=== PATIENT | male | born 1980 | race Caucasian/White ===

== ENCOUNTER 2020-12-19 13:00 | Emergency (ER) | payer MEDICAID, SELFPAY ==
[2020-12-19 13:01] VITALS: BP 144/89; PULSE 113; RESP 20; TEMP 36.8; O2SAT 97; BMI 24.3
--- NOTE | 2020-12-19 13:32 | XR_ITS ---
PROCEDURE: XR CHEST PORTABLE CLINICAL HISTORY: short of breath COMPARISON: CR CXR CHEST(2 VIEWS-NOT PORTABLE) from 01/27/2017 CR CXR CHEST(2 VIEWS-NOT PORTABLE) from 02/21/2017 FINDINGS: The cardiomediastinal silhouette and pulmonary vascularity are within normal limits. No lobar consolidation or collapse. There is a vague nodular area in the 1st interspace on the right anteriorly possibly due to summation artifact may be confirmed with follow-up. Developing nodule not excluded. No acute bony abnormalities. IMPRESSION: No acute finding. Possible right upper lobe nodule. Dictated by: Artemio Lund MD 12/19/2020 13:52 Artemio Lund MD in [place] 12/19/2020 13:52
--- NOTE | 2020-12-19 13:34 | HMH.EDGENADL ---
ED Disposition Clinical Impression: Tobacco use disorder Dyspnea Qualifiers: Dyspnea type: unspecified Qualified Code(s): R06.00 - Dyspnea, unspecified Disposition: Home, Self-Care Condition on Discharge: Good Referrals: Mckay Watson [Primary Care Provider] - - Critical Care Critical Care Time: No Attestation: On 12/19/20, the high probability of a clinically significant, sudden or life threatening deterioration of the following system(s) required my full and direct attention, intervention and personal management. The time I documented below is in addition to time spent performing reported procedures but includes the following listed in this critical care notation. Medical Decision Making - Medical Records Medical records reviewed: Yes: I reviewed the patient's medical records. - Christos Inquiry Pt receiving controlled substance: No Vital Signs: 12/19/20 13:01 12/19/20 16:30 Temperature 98.3 F 98.3 F Temperature Source Oral Pulse Rate 71 Pulse Rate [Right] 113 H Respiratory Rate 20 20 Blood Pressure 139/86 Blood Pressure [Right Arm] 144/89 H Blood Pressure Mean [Right Arm] 107 02 Sat by Pulse Oximetry 97 Oxygen Delivery Method Room Air - Lab Data Lab Results 12/19/20 14:20: Urine Opiates Screen Negative, Urine Methadone Screen Negative, Ur Barbituates Screen Negative, Ur Phencyclidine Scrn Negative, Ur Amphetamines Screen Not Reportable, U Benzodiazepines Scrn Negative, Urine Cocaine Screen Negative, U Marijuana (THC) Screen Negative 12/19/20 14:46: WBC 9.1, RBC 4.69, Hgb 15.5, Hct 42.7, MCV 91.0, MCH 33.1 H, MCHC 36.4 H, RDW 13.9, Plt Count 299, MPV 7.7, Neut % (Auto) 61.0, Lymph % (Auto) 27.0, [place] % (Auto) 8.5, Eos % (Auto) 2.7, Baso % (Auto) 0.8, Neut # (Auto) 5.6, Lymph # (Auto) 2.5, [place] # (Auto) 0.8, Eos # (Auto) 0.2, Baso # (Auto) 0.1 12/19/20 14:46: Sodium 137, Potassium 3.7, Chloride 100, Carbon Dioxide 25, Anion Gap 15.7 H, BUN 8 L, Creatinine 0.70, Estimated Creat Clear 144, Estimated GFR 125, Est GFR ( Amer) 151, Glucose 107 H, Calcium 9.0, Total Bilirubin 1.6 H, AST 80 H, ALT 61, Alkaline Phosphatase 111, Troponin I < 0.01, C-Reactive Protein 41.5 H, Total Protein 8.1, Albumin 4.3, Globulin 3.8 H, Albumin/Globulin Ratio 1.1 12/19/20 14:46: D-Dimer 0.33 12/19/20 14:46: ESR 47 H 12/19/20 14:46: NT-Pro-B Natriuret Pep < 11.1 Result diagrams: 12/19/20 14:46 12/19/20 14:46 Orders (Tests/Meds): ED MEDICATIONS Discontinued Medications Generic Name Dose Route Start Last Admin Trade Name Freq PRN Reason Stop Dose Admin Aspirin 325 mg 12/19/20 13:33 12/19/20 14:01 Aspirin 325mg Tablet PO 12/19/20 13:34 325 mg ONCE ONE Administration Sodium Chloride 1,000 mls @ 999 mls/hr 12/19/20 13:45 12/19/20 14:01 Sod Chlor 0.9% 1000ml Bag IV 12/19/20 14:45 999 mls/hr .Q1H1M ANNE MARIE Administration ORDERS Category Date Time Status HIV-1 Quant. RNA PCR Routine Lab 12/19/20 13:36 Received Hepatitis C Antibody Stat Lab 12/19/20 14:46 Received Rapid PCR Covid and Flu A/B Stat Lab 12/19/20 13:31 Ordered - IRENE Score for Non-Stemi Age of Patient: 40-49 years old Heart Rate: 70-89 bpm Systolic Blood Pressure: 140-159 mmHg Serum Creatinine: 0.40-0.79 mg/dl CHF [place] Class: I-No CHF Other Risk Factors: None Non-Stemi Risk Score: 62 Medical Decision Narrative: In summary this is a 40-year-old male presenting to the emergency department with chest pain and shortness of breath. Patient clinically stable on arrival, though he is tachycardic. Appears somewhat agitated. Differential diagnoses are broad including ACS, myocarditis, pulmonary embolism, intoxication, anxiety. Will obtain CBC, CMP, chest x-ray, EKG, troponin profile, D-dimer, BMP, ESR, CRP, drug screen. EKG shows sinus tachycardia at [address] segment elevation. No arrhythmia. Troponin undetectable. Doubt ACS. Other laboratory results are reassuring. No leukocytosis. No abnormal
[2020-12-19 15:09] LABS: Barbiturates Screen,Urine Negative ng/ml (<200)
[2020-12-19 15:10] LABS: Basophils # 0.1 K/mm3 (0-0.2); Basophils % 0.8 % (0.1-2.0); Chloride 100 mmol/L (98-107); Eosinophils # 0.2 K/mm3 (0.0-0.4); Eosinophils % 2.7 % (0.1-12.0); Hematocrit 42.7 % (42.0-52.0); Hemoglobin 15.5 g/dL (14.1-18.0); Lymphocytes # 2.5 K/mm3 (0.7-4.5); Mean Corpuscular HGB Conc 36.4 g/dL (31.8-35.4); Mean Corpuscular Hemoglobin 33.1 pg (27.0-31.2); Mean Platelet Volume 7.7 fl (7.4-10.4); Monocytes # 0.8 K/mm3 (0.1-1.0); Monocytes % 8.5 % (1.7-9.3); Neutrophils # 5.6 K/mm3 (1.8-7.8); Platelet Count 299 K/mm3 (142-424); Red Blood Count 4.69 M/mm3 (4.60-6.20); Red Cell Distribution Width 13.9 % (11.5-17.5); White Blood Count 9.1 K/mm3 (4.8-10.8)
[2020-12-19 15:10] LABS: Benzodiazepines Screen,Urine Negative ng/ml (<200)
[2020-12-19 15:11] LABS: Methadone Screen,Urine Negative ng/ml (<300)
[2020-12-19 15:11] LABS: Potassium 3.7 mmoL/L (3.5-5.1); Sodium 137 mmol/L (136-145)
[2020-12-19 15:12] LABS: Cannabinoid Screen,Urine Negative ng/ml (<50); Cocaine Screen,Urine Negative ng/ml (<300)
[2020-12-19 15:13] LABS: Alanine Aminotransferase 61 U/L (12-78); Aspartate Amino Transferase 80 U/L (17-59); Blood Urea Nitrogen 8 mg/dl (9-20); Creatinine Clearance Estimated 144 mL/min (50-200); Estimated Glomerular Filt Rate 125 ml/min (>60); GFR (African American) 151 ML/MIN (>60)
[2020-12-19 15:13] LABS: Opiate Screen,Urine Negative ng/ml (<300); Phencyclidine Screen,Urine Negative ng/ml (<25)
[2020-12-19 15:14] LABS: Albumin Level 4.3 g/dl (3.5-5.0); Albumin/Globulin Ratio 1.1 (1.1-1.8); Alkaline Phosphatase 111 U/L (38-126); Anion Gap 15.7 mEq/L (5-15); Bilirubin,Total 1.6 mg/dl (0.2-1.3); Carbon Dioxide 25 mmol/L (22.0-30.0); Globulin 3.8 g/dL (1.3-3.2); Glucose 107 mg/dl (74-100); Total Protein,Serum 8.1 g/dl (6.3-8.2)
[2020-12-19 15:22] LABS: C-Reactive Protein 41.5 mg/L (0-4)
[2020-12-19 15:24] LABS: D-Dimer 0.33 ug/mL (0.0-0.5)
[2020-12-19 15:33] LABS: NT Pro Brain Natriuretic Pep. < 11.1 pg/mL (0-125)
[2020-12-19 15:35] LABS: Troponin I < 0.01 ng/ml (0.00-0.034)
[2020-12-19 15:45] LABS: Erythrocyte Sedimentation Rate 47 mm/hr (0-15)
[2020-12-19 16:30] VITALS: BP 139/86; PULSE 71; RESP 20; TEMP 36.8; O2SAT 100
[2020-12-21 08:30] LABS: Hepatitis C Antibody >11.0 s/co ratio (0.0-0.9)
[2020-12-22 12:06] LABS: HIV 1 RNA, Real time PCR <20 copies/mL (.)
== END 2020-12-19 16:35 | disposition home or self-care (01) ==
PROVIDERS: Emergency Provider Emergency Medicine; PCP Internal Medicine
DX: R06.00 Dyspnea, unspecified (principal); R07.9 Chest pain, unspecified; F17.290 Nicotine dependence, other tobacco product, uncomplicated
CPT/HCPCS: 71045; 80053; 80305; 83880; 84484; 85025; 85378; 85651; 86140; 87380; 87536; 96365; 99282

== ENCOUNTER 2021-01-20 15:25 | Emergency (ER) | payer MEDICAID, SELFPAY ==
[2021-01-20 15:27] VITALS: BP 132/85; PULSE 113; RESP 18; TEMP 36.8; O2SAT 96; BMI 24.2
--- NOTE | 2021-01-20 15:56 | CT_ITS ---
PROCEDURE INFORMATION: Exam: CT Abdomen And Pelvis Without Contrast Exam date and time: 01/20/2021 3:56 PM Age: 40 years old Clinical indication: Abdominal pain; Flank; Right; Prior surgery; Surgery type: Gallbladder; Additional info: Llq and RT flank pain, burn with urination TECHNIQUE: Imaging protocol: Computed tomography of the abdomen and pelvis without contrast. Radiation optimization: All CT scans at this facility use at least one of these dose optimization techniques: automated exposure control; mA and/or kV adjustment per patient size (includes targeted exams where dose is matched to clinical indication); or iterative reconstruction. COMPARISON: ABDPELWW CT abdomen pelvis wo/w con 04/18/2018 1:08 PM FINDINGS: Liver: Normal. No mass. Gallbladder and bile ducts: Status post cholecystectomy. Pancreas: Normal. No ductal dilation. Spleen: Normal. No splenomegaly. Adrenal glands: Normal. No mass. Kidneys and ureters: No stones. No hydronephrosis. Stomach and bowel: Unremarkable. No obstruction. No mucosal thickening. Appendix: No evidence of appendicitis. Intraperitoneal space: Unremarkable. No free air. No significant fluid collection. Vasculature: Unremarkable. No abdominal aortic aneurysm. Lymph nodes: Unremarkable. No enlarged lymph nodes. Urinary bladder: Unremarkable as visualized. Reproductive: Unremarkable as visualized. Bones/joints: Unremarkable. No acute fracture. Soft tissues: Unremarkable. Lungs: Calcified nodule in the left base. IMPRESSION: No acute pathology
[2021-01-20 16:01] LABS: Basophils # 0.1 K/mm3 (0-0.2); Basophils % 1.5 % (0.1-2.0); Eosinophils # 0.2 K/mm3 (0.0-0.4); Hematocrit 49.5 % (42.0-52.0); Hemoglobin 17.2 g/dL (14.1-18.0); Lymphocytes % 32.6 % (10-50); Mean Corpuscular HGB Conc 34.7 g/dL (31.8-35.4); Mean Corpuscular Hemoglobin 32.7 pg (27.0-31.2); Mean Corpuscular Volume 94.2 fl (80-94); Monocytes # 0.5 K/mm3 (0.1-1.0); Monocytes % 5.7 % (1.7-9.3); Neutrophils # 5.4 K/mm3 (1.8-7.8); Neutrophils % 58.2 % (37.0-80.0); Platelet Count 343 K/mm3 (142-424); Red Blood Count 5.25 M/mm3 (4.60-6.20); Red Cell Distribution Width 13.5 % (11.5-17.5); White Blood Count 9.3 K/mm3 (4.8-10.8)
[2021-01-20 16:12] LABS: Alanine Aminotransferase 56 U/L (12-78); Albumin Level 4.8 g/dl (3.5-5.0); Albumin/Globulin Ratio 1.1 (1.1-1.8); Alkaline Phosphatase 83 U/L (38-126); Amylase 66 U/L (30-110); Anion Gap 21.1 mEq/L (5-15); Aspartate Amino Transferase 65 U/L (17-59); Bilirubin,Total 1.5 mg/dl (0.2-1.3); Blood Urea Nitrogen 10 mg/dl (9-20); Calcium 9.4 mg/dl (8.4-10.2); Carbon Dioxide 24 mmol/L (22.0-30.0); Chloride 97 mmol/L (98-107); Creatinine Clearance Estimated 157 mL/min (50-200); Estimated Glomerular Filt Rate 149 ml/min (>60); GFR (African American) 181 ML/MIN (>60); Globulin 4.5 g/dL (1.3-3.2); Glucose 96 mg/dl (74-100); Lipase 55 U/L (23-300); Potassium 4.1 mmoL/L (3.5-5.1); Sodium 138 mmol/L (136-145); Total Protein,Serum 9.3 g/dl (6.3-8.2)
[2021-01-20 17:00] VITALS: BP 122/80; PULSE 103; RESP 17; O2SAT 99
--- NOTE | 2021-01-20 17:26 | HMH.EDGENADL ---
ED Disposition Clinical Impression: Right flank pain, Left sided abdominal pain, Urethritis, Blurry vision Disposition: Home, Self-Care Condition on Discharge: Good Instructions: DI for Acute Abdominal Pain Additional Instructions: Take doxycycline as prescribed. Vccw-fea-gurneet ibuprofen for pain. Follow-up with primary care provider next week for STD test results and further care. Follow-up with eye doctor for blurry vision: Dr. Juan Shepherd [facility] [address] [place] [address] Prescriptions: Doxycycline Monohydrate [Monodox] 100 mg PO BID #14 cap Transmission Status: Received by [facility] Referrals: Mckay Watson [Primary Care Provider] - - Critical Care Critical Care Time: No Attestation: On 01/20/21, the high probability of a clinically significant, sudden or life threatening deterioration of the following system(s) required my full and direct attention, intervention and personal management. The time I documented below is in addition to time spent performing reported procedures but includes the following listed in this critical care notation. Medical Decision Making - Christos Inquiry Pt receiving controlled substance: No Vital Signs: 01/20/21 15:27 01/20/21 17:00 01/20/21 17:30 Temperature 98.2 F Temperature Source Oral Pulse Rate 103 H 114 H Pulse Rate [Right Radial] 113 H Respiratory Rate 18 17 17 Blood Pressure 122/80 114/80 Blood Pressure [Right Arm] 132/85 Blood Pressure Mean 94 84 Blood Pressure Mean [Right Arm] 100 Blood Pressure Source [Right Arm] Automatic Cuff Blood Pressure Position [Right Arm] Sitting 02 Sat by Pulse Oximetry 96 99 100 Oxygen Delivery Method Room Air - Lab Data Lab Results 01/20/21 15:54: WBC 9.3, RBC 5.25, Hgb 17.2, Hct 49.5, MCV 94.2 H, MCH 32.7 H, MCHC 34.7, RDW 13.5, Plt Count 343, MPV 8.0, Neut % (Auto) 58.2, Lymph % (Auto) 32.6, [place] % (Auto) 5.7, Eos % (Auto) 2.0, Baso % (Auto) 1.5, Neut # (Auto) 5.4, Lymph # (Auto) 3.0, [place] # (Auto) 0.5, Eos # (Auto) 0.2, Baso # (Auto) 0.1 01/20/21 15:54: Sodium 138, Potassium 4.1, Chloride 97 L, Carbon Dioxide 24, Anion Gap 21.1 H, BUN 10, Creatinine 0.60 L, Estimated Creat Clear 157, Estimated GFR 149, Est GFR ( Amer) 181, Glucose 96, Calcium 9.4, Total Bilirubin 1.5 H, AST 65 H, ALT 56, Alkaline Phosphatase 83, Total Protein 9.3 H, Albumin 4.8, Globulin 4.5 H, Albumin/Globulin Ratio 1.1, Amylase 66, Lipase 55 Result diagrams: 01/20/21 15:54 01/20/21 15:54 Orders (Tests/Meds): ED MEDICATIONS Discontinued Medications Generic Name Dose Route Start Last Admin Trade Name Freq PRN Reason Stop Dose Admin Ceftriaxone Sodium 1 gm/ 50 mls @ 100 mls/hr 01/20/21 17:31 01/20/21 18:19 Sodium Chloride IV 01/20/21 18:00 100 mls/hr ONCE ONE Administration Sodium Chloride 1,000 mls @ 999 mls/hr 01/20/21 17:58 01/20/21 18:19 Sod Chlor 0.9% 1000ml Bag IV 01/20/21 18:58 999 mls/hr .Q1H1M ONE Administration Ketorolac Tromethamine 30 mg 01/20/21 17:33 01/20/21 18:19 Ketorolac 30mg/Ml Vial IV 01/20/21 17:34 30 mg ONCE ONE Administration ORDERS Category Date Time Status Urinalysis and Microscopic Stat Lab 01/20/21 15:55 Ordered - CT Data CT Scan: Abdomen, Pelvis Time Received: 17:[address] Reviewed: Yes: I have viewed the radiologist's interpretation Findings Narrative: PROCEDURE INFORMATION: Exam: CT Abdomen And Pelvis Without Contrast Exam date and time: 01/20/2021 3:56 PM Age: 40 years old Clinical indication: Abdominal pain; Flank; Right; Prior surgery; Surgery type: Gallbladder; Additional info: Llq and RT flank pain, burn with urination TECHNIQUE: Imaging protocol: Computed tomography of the abdomen and pelvis without contrast. Radiation optimization: All CT scans at this facility use at least one of these dose optimization techniques: automated exposure control; mA and/or
[2021-01-20 17:30] VITALS: BP 114/80; PULSE 114; RESP 17; O2SAT 100
[2021-01-20 19:05] VITALS: BP 123/76; PULSE 74; RESP 18; TEMP 36.8; O2SAT 98
== END 2021-01-20 19:06 | disposition home or self-care (01) ==
PROVIDERS: Emergency Provider Emergency Medicine; PCP Internal Medicine
DX: N34.2 Other urethritis (principal); F17.290 Nicotine dependence, other tobacco product, uncomplicated; H53.8 Other visual disturbances
CPT/HCPCS: 74176; 80053; 82150; 83690; 85025; 96365; 96375; 99282

== ENCOUNTER 2021-07-13 02:13 | Emergency (ER) | payer MEDICAID, SELFPAY ==
[2021-07-13 02:18] VITALS: BP 145/91; PULSE 96; RESP 18; TEMP 36.7; O2SAT 96; BMI 25.0
--- NOTE | 2021-07-13 02:34 | HMH.EDMCLR ---
ED Disposition Clinical Impression: Medical clearance for incarceration Disposition: Home, Self-Care Condition on Discharge: Good Referrals: Mckay Watson [Primary Care Provider] - - Critical Care Critical Care Time: No Attestation: On 07/13/21, the high probability of a clinically significant, sudden or life threatening deterioration of the following system(s) required my full and direct attention, intervention and personal management. The time I documented below is in addition to time spent performing reported procedures but includes the following listed in this critical care notation. Medical Decision Making - Medical Records Medical records reviewed: Yes: I reviewed the patient's medical records. - Christos Inquiry Pt receiving controlled substance: No Vital Signs: 07/13/21 02:18 Temperature 98.1 F Temperature Source Oral Pulse Rate [Apical] 96 H Respiratory Rate 18 Blood Pressure [Right Arm] 145/91 H Blood Pressure Mean [Right Arm] 109 Blood Pressure Source [Right Arm] Automatic Cuff Blood Pressure Position [Right Arm] Sitting 02 Sat by Pulse Oximetry 96 Oxygen Delivery Method Room Air Medical Clearance HPI - General Chief complaint: Medical Clearance Stated complaint: Medical Clearance Time Seen by Provider: 07/13/21 02:34 Mode of Arrival: Ambulatory Source of Information: Patient, Medical Record Limitations: No Limitations Description of Symptoms (Recalled from ER Triage Doc. by RN): Patient is a medical clearance for incarceration. Patient has no medical complaints. - History of Present Illness HPI Narrative: no specific issues MD complaint: medical clearance requested Place: home Traumatic Symptoms: denies traumatic injury Associated Symptoms: denies other symptoms Treatments Prior to Arrival: none Home medications: Previous Rx's Medication Instructions Recorded Doxycycline Monohydrate [Monodox] 100 mg PO BID #14 cap 01/20/21 Allergies/Adverse reactions: Allergies Allergy/AdvReac Type Severity Reaction Status Date / Time No Known Allergies Allergy Verified 06/13/19 14:01 [facility] History - Hepatitis A Screen Drug use history?: Yes High risk sexual behaviors?: No History of sexually transmitted infection?: No Currently employed?: No Childcare worker?: No Do you have indoor plumbing?: Yes Do you have electricity?: Yes Attestation statement:: This patient has been screened for Hepatitis A risk factors. I have reviewed the patient's past medical history: Yes Medical History: Denies:: Cancer, Diabetes Mellitus Type 1, Diabetes Mellitus Type 2, MRSA Amputation: No - Social History Smoking Status: Unknown if ever smoked Tobacco Type: smokeless tobacco # Packs/Day (cigarettes): 1 Alcohol Intake: current Alcohol Intake Frequency:: a few times a month Substance Use Type: IV drugs, methamphetamine Occupational Status: unemployed Housing: apartment ROS Obtained: Yes All systems reviewed & no additional complaints Physical Exam - General General appearance: alert - Head Head exam: normocephalic - Eye Eye exam: Present: PERRL - ENT ENT exam: Present: mucous membranes moist - Neck Neck exam: Present: trachea midline - Respiratory Respiratory exam: Absent: respiratory distress - Cardiovascular Cardiovascular exam: Present: regular rate - Abdominal Exam Abdominal exam: Present: soft - Extremities Exam Extremities exam: Present: full ROM - Neurological Exam Neurological exam: Present: alert, CN II-XII intact - Psychiatric Psychiatric exam: Present: normal affect - Skin Skin exam: Absent: rash
[2021-07-13 02:42] VITALS: BP 145/90; PULSE 95; RESP 18; TEMP 36.7; O2SAT 99
== END 2021-07-13 02:44 | disposition home or self-care (01) ==
PROVIDERS: Emergency Provider Emergency Medicine; PCP Internal Medicine
DX: F17.290 Nicotine dependence, other tobacco product, uncomplicated
CPT/HCPCS: 99282

== ENCOUNTER 2023-10-20 13:49 | Emergency (ER) | payer OTHER, MEDICAID, SELFPAY ==
[2023-10-20 14:00] VITALS: BP 138/92; PULSE 113; RESP 18; TEMP 36.7; O2SAT 100; BMI 24.2
--- NOTE | 2023-10-20 14:03 | ED_ITS ---
Discharge Plan Disposition Patient Disposition: Home, Self-Care Condition: Good Prescriptions Prescriptions: New clindamycin HCl 150 mg capsule 150 mg PO BID 10 Days Qty: 20 0RF sulfamethoxazole-trimethoprim [Bactrim DS] 800-160 mg tablet 1 tab PO Q8H 10 Days Qty: 30 0RF No Action doxycycline monohydrate 100 MG capsule 100 mg PO BID Qty: 14 0RF cyclobenzaprine 10 mg tablet 10 mg PO TID PRN (Reason: muscle spasm) 5 Days Qty: 15 0RF lidocaine 4 % adhesive patch,medicated 1 patch topical DAILY Qty: 5 0RF Rx Instructions: may leave on for up to 12 hrs ibuprofen 600 mg tablet 600 mg PO Q8H PRN (Reason: pain) 7 Days Qty: 21 0RF Referrals Follow up/Referrals: Dontrell Rausch MD [Staff Physician] - See instructions Provider,MD Emmanuel [Primary Care Provider] - See instructions Clinical Impressions Clinical Impression: Scrotal wall abscess Instructions Patient Instructions: DI for Scrotal Abscess Discharge ED Provider: Ivana Barboza General Adult HPI <THANG Guzman - Last Filed: 10/27/23 15:51> General Chief complaint: Urogenital-Male Stated complaint: lower pain sore on private area Time Seen by Provider: 10/20/23 14:02 History of Present Illness HPI narrative: Patient presents for a very painful area on his scrotum. Patient noticed a red place on his left scrotal wall that he thought was a pimple. He tried to pop it himself however he does continue to get red hot and occasionally draining purulent material. He reports no difficulty with urination. He denies fever chills hemoptysis hematochezia melena vomiting or diarrhea but does report the pain makes him nauseated. Related Data Previous Rx's Medication Instructions Recorded doxycycline monohydrate 100 mg 100 mg PO BID #14 caps 01/20/21 capsule clindamycin HCl 150 mg capsule 150 mg PO BID 10 days #20 caps 10/20/23 sulfamethoxazole 800 1 tab PO Q8H 10 days #30 tabs 10/20/23 mg-trimethoprim 160 mg tablet (Bactrim DS) cyclobenzaprine 10 mg tablet 10 mg PO TID PRN muscle spasm 5 10/22/23 days #15 tabs ibuprofen 600 mg tablet 600 mg PO Q8H PRN pain 7 days #21 10/22/23 tabs lidocaine 4 % topical patch 1 patch topical DAILY #5 ea 10/22/23 Allergies Allergy/AdvReac Type Severity Reaction Status Date / Time No Known Allergies Allergy Verified 06/13/19 14:01 PFSH <THANG Guzman - Last Filed: 10/27/23 15:51> [facility] Disclaimer: The information contained in this section may have been updated after the patient was seen, as this information can be updated by other users. 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 current occupational status: unemployed Travel in the last 8 weeks: None housing: apartment <THANG Guzman - Last Filed: 10/27/23 15:51> ROS Obtained: Yes Systems reviewed as appropriate & no additional complaints except as documented Physical Exam <THANG Guzman - Last Filed: 10/27/23 15:51> General General appearance: alert and in no apparent distress Respiratory Respiratory exam: Present normal lung sounds bilaterally Cardiovascular Cardiovascular exam: Present normal rhythm and bradycardia Expanded Exam Male Image: 2 1. Scrotal wall abscess and cellulitis Neurological Exam Neurological exam: Present alert and oriented X3 Lymphatic Lymphatic Findings: L inguinal node tender (Patient has inguinal lymphadenitis on the left) Medical Decision Making <THANG Guzman - Last Filed: 10/27/23 15:51> Medical Records Medical records reviewed: Yes I reviewed the patient's medical records. Christos Inquiry Pt receiving controlled substance: No Vital Signs: 10/20/23 14:00 10/20/23 14:55 10/20/23 15:20 Temperature 98.1 F 98.1 F Temperature Source Oral Oral Pulse Rate 109 H 92 H Pulse Rate [Right Brachial] 113 H Respiratory Rate 18 17 Blood Pressure 134/75 137/87 Blood Pressure [Right Arm] 138/92 H Blood Pressure Mean [Right Arm] 107 02 Sat by Pulse Oximetry 100 100 Oxygen Delivery Method Room Air Room Air Lab Data Lab results reviewed: Yes I reviewed the patient's lab results. Orders (Tests/Meds): ED MEDICATIONS Discontinued Medications Generic Name Dose Route Start Last Admin Trade Name Freq PRN Reason Stop Dose Admin Acetaminophen 1,000 mg 10/20/23 14:36 10/20/23 14:42 Acetaminophen 500mg Tab PO 10/20/23 14:37 1,000 mg ONCE ONE Administration Clindamycin HCl 150 mg 10/20/23 14:16 10/20/23 14:42 Clindamycin 150mg Capsule PO 10/20/23 14:17 150 mg ONCE ONE Administration Ibuprofen 800 mg 10/20/23 14:36 10/20/23 14:42 Ibuprofen 400 Mg Tablet PO 10/20/23 14:37 800 mg ONCE ONE Administration Lidocaine HCl 10 ml 10/20/23 14:16 10/20/23 14:43 Lidocaine 1% 10ml Mdv SQ 10/20/23 14:17 10 ml ONCE ONE Administration Oxycodone HCl 5 mg 10/20/23 14:36 10/20/23 14:42 Oxycodone 5mg Immediate Release Tablet PO 10/20/23 14:37 5 mg ONCE ONE Administration Trimethoprim/Sulfamethoxazole 1 each 10/20/23 14:16 10/20/23 14:42 Sulfa/Trimethoprim 1 Tablet PO 10/20/23 14:17 1 each ONCE ONE Administration ORDERS Category Date Time Status Wound Culture and Gram Stain Routine Micro 10/20/23 15:00 Completed Medical Decision Narrative: In summary patient is a 43-year-old male who presents to the emergency department for evaluation of scrotal wall abscess and cellulitis. Patient is normotensive tachycardic upon arrival, but afebrile. Physical exam is remarkable for left dependent wall induration erythema and obvious necrotic area but no discrete fluctuance noted. It does not involve the testicles. It is limited to the scrotal wall. There is no erythema edema or induration tracking towards the perineum. He does have left inguinal node lymphadenitis. Differential diagnosis includes scrotal wall abscess versus involvement of the anterior of the scrotum as well. Initial workup will be conducted with incision and drainage. Initial interventions include Tylenol Motrin oxycodone. Incision and drainage confirms that it is limited to the scrotal wall and not involving the actual anterior scrotal sac. Wound edges packed open. Addendum on 10/27/2023 notified by [employer]) that the principal was incorrect and it was the [facility] provider instead of Dr. Harris. I have made the correction on this date and no other chart edits. <Azam Harris MD - Last Filed: 10/29/23 15:12> Vital Signs: 10/20/23 14:00 10/20/23 14:55 10/20/23 15:20 Temperature 98.1 F 98.1 F Temperature Source Oral Oral Pulse Rate 109 H 92 H Pulse Rate [Right Brachial] 113 H Respiratory Rate 18 17 Blood Pressure 134/75 137/87 Blood Pressure [Right Arm] 138/92 H Blood Pressure Mean [Right Arm] 107 02 Sat by Pulse Oximetry 100 100 Oxygen Delivery Method Room Air Room Air Orders (Tests/Meds): ED MEDICATIONS Discontinued Medications Generic Name Dose Route Start Last Admin Trade Name Freq PRN Reason Stop Dose Admin Acetaminophen 1,000 mg 10/20/23 14:36 10/20/23 14:42 Acetaminophen 500mg Tab PO 10/20/23 14:37 1,000 mg ONCE ONE Administration Clindamycin HCl 150 mg 10/20/23 14:16 10/20/23 14:42 Clindamycin 150mg Capsule PO 10/20/23 14:17 150 mg ONCE ONE Administration Ibuprofen 800 mg 10/20/23 14:36 10/20/23 14:42 Ibuprofen 400 Mg Tablet PO 10/20/23 14:37 800 mg ONCE ONE Administration Lidocaine HCl 10 ml 10/20/23 14:16 10/20/23 14:43 Lidocaine 1% 10ml Mdv SQ 10/20/23 14:17 10 ml ONCE ONE Administration Oxycodone HCl 5 mg 10/20/23 14:36 10/20/23 14:42 Oxycodone 5mg Immediate Release Tablet PO 10/20/23 14:37 5 mg ONCE ONE Administration Trimethoprim/Sulfamethoxazole 1 each 10/20/23 14:16 10/20/23 14:42 Sulfa/Trimethoprim 1 Tablet PO 10/20/23 14:17 1 each ONCE ONE Administration ORDERS Category Date Time Status Wound Culture and Gram Stain Routine Micro 10/20/23 15:00 Completed Medical Decision Narrative: In summary patient is a 43-year-old male who presents to the emergency department for evaluation of scrotal wall abscess and cellulitis. Patient is normotensive tachycardic upon arrival, but afebrile. Physical exam is remarkable for left dependent wall induration erythema and obvious necrotic area but no discrete fluctuance noted. It does not involve the testicles. It is limited to the scrotal wall. There is no erythema edema or induration tracking towards the perineum. He does have left inguinal node lymphadenitis. Differential diagnosis includes scrotal wall abscess versus involvement of the anterior of the scrotum as well. Initial workup will be conducted with incision and drainage. Initial interventions include Tylenol Motrin oxycodone. Incision and drainage confirms that it is limited to the scrotal wall and not involving the actual anterior scrotal sac. Wound edges packed open. Addendum on 10/27/2023 notified by [employer]) that the principal was incorrect and it was the [facility] provider instead of Dr. Harris. I have made the correction on this date and no other chart edits. I was consulted by the VERÓNICA, and we discussed the complexity of the problems being addressed. I approved the treatment and management plan for this patient?s care in the Emergency Department, thus performing a substantive portion of the medical decision making. Azam Harris MD Procedures <THANG Guzman - Last Filed: 10/27/23 15:51> Abscess I/D Site: other (Left dependent scrotal wall) Side (if applicable): left Local Anesthetic: lidocaine 1% Amount of anesthesia used (mL): 10 Technique: incised with #11 blade Amount of fluid expressed (mL): 3 Irrigation: Yes Packing used?: iodoform Critical Care <THANG Guzman - Last Filed: 10/27/23 15:51> Critical Care Time Critical Care Time: No
[2023-10-20] MEDS: ACETAMINOPHEN 500MG TAB 1000 MG PO (14:42)
[2023-10-20] MEDS: OXYCODONE 5MG IMMEDIATE RELEASE TABLET 5 MG PO (14:42)
[2023-10-20] MEDS: SULFA/TRIMETHOPRIM 1 TABLET 1 EACH PO (14:42)
[2023-10-20] MEDS: IBUPROFEN 400 MG TABLET 800 MG PO (14:42)
[2023-10-20] MEDS: CLINDAMYCIN 150MG CAPSULE 150 MG PO (14:42)
[2023-10-20] MEDS: LIDOCAINE 1% 10ML MDV 10 ML SQ (14:43)
[2023-10-20 14:55] VITALS: BP 134/75; PULSE 109; O2SAT 100
[2023-10-20 15:20] VITALS: BP 137/87; PULSE 92; RESP 17; TEMP 36.7; O2SAT 99
--- NOTE | 2023-10-22 08:47 | PC.NURSE ---
WOUND CULTURE DISCUSSED WITH DR CURRIE, NO NEW ORDERS
== END 2023-10-20 15:21 | disposition home or self-care (01) ==
PROVIDERS: Emergency Provider Nurse Practitioner Family
DX: N49.2 Inflammatory disorders of scrotum (principal); B95.62 Methicillin resistant Staphylococcus aureus infection as the cause of diseases classified elsewhere; L04.1 Acute lymphadenitis of trunk
CPT/HCPCS: 55100; 87070; 87077; 87186; 87205; 99283

== ENCOUNTER 2023-10-22 10:16 | Emergency (ER) | payer OTHER, SELFPAY ==
[2023-10-22 10:17] VITALS: BP 137/95; PULSE 105; RESP 21; TEMP 36.7; O2SAT 96; BMI 23.5
[2023-10-22 10:21] VITALS: BP 137/95; PULSE 99; O2SAT 98
[2023-10-22 10:30] VITALS: BP 143/86; PULSE 95; O2SAT 97
--- NOTE | 2023-10-22 10:35 | PC.NURSE ---
DR CURRIE AT BEDSIDE
[2023-10-22] MEDS: KETOROLAC 60MG/2ML VIAL 60 MG IM (10:44)
--- NOTE | 2023-10-22 10:44 | ED_ITS ---
Discharge Plan Disposition Patient Disposition: Home, Self-Care Prescriptions Prescriptions: New cyclobenzaprine 10 mg tablet 10 mg PO TID PRN (Reason: muscle spasm) 5 Days Qty: 15 0RF lidocaine 4 % adhesive patch,medicated 1 patch topical DAILY Qty: 5 0RF Rx Instructions: may leave on for up to 12 hrs ibuprofen 600 mg tablet 600 mg PO Q8H PRN (Reason: pain) 7 Days Qty: 21 0RF No Action doxycycline monohydrate 100 MG capsule 100 mg PO BID Qty: 14 0RF clindamycin HCl 150 mg capsule 150 mg PO BID 10 Days Qty: 20 0RF sulfamethoxazole-trimethoprim [Bactrim DS] 800-160 mg tablet 1 tab PO Q8H 10 Days Qty: 30 0RF Referrals Follow up/Referrals: Mckay Watson MD [Primary Care Provider] - See instructions Activity Restrictions/Add. Instructions Additional Instructions/Restrictions: Please return with any worsening symptoms blood in your urine high fevers or other concerns. Clinical Impressions Clinical Impression: Lumbosacral strain Discharge ED Provider: Margi Akins General Adult HPI General Chief complaint: PAIN Stated complaint: pain in left side Time Seen by Provider: 10/22/23 10:35 Mode of Arrival: Family Vehicle Source of Information: Patient Limitations: No Limitations Description of Symptoms (Recalled from ER Triage Doc. by RN): Pt c/o sudden onset of pain to his left low back. States he was working with [employer] and then immediatly felt the pain to his back. States the pain radiates to his left flank and LLQ ABD. Tenderness to left lower back. Denies any hx of kidney stone of back trouble. Denies any gross hematuria or difficulty voiding. Denies any fever, chills, or n/v/d. History of Present Illness HPI narrative: Patient is a 43-year-old male present today with left paraspinal lumbosacral pain. This happened suddenly while he was working with [employer] work. States he is having significant worsening with any type of movement or touch. Does associate some tightness in the left lateral side of his abdomen but no significant abdominal pain associate with this. Denies any hematuria no history of kidney stones no fevers or chills. Also denies any lower extremity paralysis any saddle anesthesia bowel or bladder incontinence history of fever etc. Of note he was recently in the ER for a scrotal abscess which he states is significantly improved since recent I&D. Denies any associated symptoms with that. Related Data Previous Rx's Medication Instructions Recorded doxycycline monohydrate 100 mg 100 mg PO BID #14 caps 01/20/21 capsule clindamycin HCl 150 mg capsule 150 mg PO BID 10 days #20 caps 10/20/23 sulfamethoxazole 800 1 tab PO Q8H 10 days #30 tabs 10/20/23 mg-trimethoprim 160 mg tablet (Bactrim DS) cyclobenzaprine 10 mg tablet 10 mg PO TID PRN muscle spasm 5 10/22/23 days #15 tabs ibuprofen 600 mg tablet 600 mg PO Q8H PRN pain 7 days #21 10/22/23 tabs lidocaine 4 % topical patch 1 patch topical DAILY #5 ea 10/22/23 Allergies Allergy/AdvReac Type Severity Reaction Status Date / Time No Known Allergies Allergy Verified 06/13/19 14:01 [facility] Disclaimer: The information contained in this section may have been updated after the patient was seen, as this information can be updated by other users. 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 current occupational status: unemployed Travel in the last 8 weeks: None housing: apartment ROS Obtained: Yes All systems reviewed & no additional complaints except as documented Physical Exam General General appearance: alert and in no apparent distress Respiratory Respiratory exam: Present normal lung sounds bilaterally Cardiovascular Cardiovascular exam: Present regular rate and normal rhythm Abdominal Exam Abdominal exam: Present soft; Absent distention or tenderness Back Exam Back exam: Present tenderness (No midline spinal tenderness no radiation normal neurovascular exam distally) Back 1 view image: 2 1. ttp Neurological Exam Neurological exam: Present alert and oriented X3 Medical Decision Making Christos Inquiry Pt receiving controlled substance: No Vital Signs: 10/22/23 10:17 10/22/23 10:21 10/22/23 10:30 Temperature 98.1 F Temperature Source Oral Pulse Rate 99 H 95 H Pulse Rate [Right] 105 H Respiratory Rate 21 Blood Pressure 137/95 H 143/86 H Blood Pressure [Left Arm] 137/95 H Blood Pressure Mean [Left Arm] 109 Blood Pressure Source [Left Arm] Automatic Cuff 02 Sat by Pulse Oximetry 96 98 97 Oxygen Delivery Method Room Air Room Air Room Air 10/22/23 11:00 10/22/23 11:30 Temperature Temperature Source Pulse Rate 92 H 82 Pulse Rate [Right] Respiratory Rate Blood Pressure 138/86 127/85 Blood Pressure [Left Arm] Blood Pressure Mean [Left Arm] Blood Pressure Source [Left Arm] 02 Sat by Pulse Oximetry 97 98 Oxygen Delivery Method Room Air Room Air Lab Data Lab results reviewed: Yes I reviewed the patient's lab results. Lab Results 10/22/23 10:52: Urine Color Yellow, Urine Appearance Clear, Urine pH 6.0, Ur Specific [place] >= 1.030, Urine Protein Negative, Urine Glucose (UA) Negative, Urine Ketones Negative, Urine Blood 2+, Urine Nitrate Negative, Urine Bilirubin 1+ A, Urine Urobilinogen >=8.0, Ur Leukocyte Esterase Negative, Urine RBC None, Urine WBC 3-5, Ur Squamous Epith Cells Occasional, Calcium Oxalate Crystal 1+, Urine Bacteria Trace Orders (Tests/Meds): ED MEDICATIONS Discontinued Medications Generic Name Dose Route Start Last Admin Trade Name Phong PRN Reason Stop Dose Admin Diazepam 5 mg 10/22/23 10:41 10/22/23 10:45 Diazepam 5mg Tablet PO 10/22/23 10:42 5 mg ONCE ONE Administration Ketorolac Tromethamine 60 mg 10/22/23 10:41 10/22/23 10:44 Ketorolac 60mg/2ml Vial IM 10/22/23 10:42 60 mg ONCE ONE Administration Lidocaine 1 each 10/22/23 10:41 10/22/23 10:45 Lidocaine 5% Transdermal Patch TP 10/22/23 10:42 1 each ONCE ONE Administration ORDERS Category Date Time Status UA [Urinalysis and Microscopic] Stat Lab 10/22/23 10:52 Completed Medical Decision Narrative: 43-year-old male presents today with sudden lumbosacral pain off-center on exam without any red flags from history or physical standpoint. I do not suspect epidural abscess discitis or osteomyelitis in this particular presentation. He has normal neurovascular exam. Possible he had a ruptured herniated disc with the sudden onset of this but he has no signs or symptoms of sciatica or cauda equina. He is very tender to the touch paraspinal musculature is having difficult time with movement and is behaving like a musculoskeletal strain. He does complain of some abdominal discomfort but he describes it as a tightness associated with primarily back pain. I do not believe that he has any type of intra-abdominal pathology at the moment because he is primarily presenting with back pain surgical pathology in the abdomen typically does not have tenderness in the back as a primary chief complaint. Will get a urinalysis to make sure is not any gross hematuria but this is unlikely to be a kidney stone. Toradol lidocaine Valium has been administered will reassess. Reassessment urinalysis returned which did show blood on the dip but no RBCs. It is possible he has some mild rhabdo but no symptoms consistent with. There are calcium oxalate crystals but again patient is very stiff and has pain worsening with movement and touch this is not consistent with a kidney stone. He felt much better on reassessment serial abdominal exams are benign. I discussed with him the risk and benefits of a CT scan and with shared decision making we opted to not do that at the moment and to have return precautions if he is worsening. Cannot definitively rule out a kidney stone. Symptomatic medications prescribed patient is sent home in a improved and stable condition with return precautions emphasized Critical Care Critical Care Time Critical Care Time: No
[2023-10-22] MEDS: diazePAM 5MG TABLET 5 MG PO (10:45)
[2023-10-22] MEDS: LIDOCAINE 5% TRANSDERMAL PATCH 1 EACH TP (10:45)
[2023-10-22 10:58] LABS: Microscopic, Urine URINE MICROSCOPIC (MICROSCOPIC)
[2023-10-22 11:00] VITALS: BP 138/86; PULSE 92; O2SAT 97
[2023-10-22 11:00] LABS: Appearance,Urine CLEAR (Clear); Blood, Urine 2+ (Negative); Color,Urine YELLOW (Yellow); Glucose,Urine (UA) Negative (Negative); Ketones,Urine Negative (Negative); Leukocyte Esterase,Urine Negative (Negative); Nitrate,Urine Negative (Negative); Protein,Urine Negative (Negative); Specific Gravity, Urine >= 1.030 (1.005-1.030); Urobilinogen,Urine >=8.0 EU/dl (0.2)
[2023-10-22 11:17] LABS: Bilirubin,Urine 1+ (Negative)
[2023-10-22 11:18] LABS: Bacteria,Urine Trace /lpf; Calcium Oxalate Crystals,Urine 1+ /lpf; Squamous Epithelial Cell,Urine Occasional #/hpf (0-5)
[2023-10-22 11:30] VITALS: BP 127/85; PULSE 82; O2SAT 98
--- NOTE | 2023-10-22 11:55 | PC.NURSE ---
FATHER CALLED TO CHECK ON PT, CALL TRANSFERRED TO CORDLESS PHONE AND TAKEN TO PT
[2023-10-22 12:03] VITALS: BP 125/79; PULSE 83; RESP 16; TEMP 36.7; O2SAT 98
== END 2023-10-22 12:05 | disposition home or self-care (01) ==
PROVIDERS: Emergency Provider Student in an Organized Health Care Education/Training Program; PCP Internal Medicine
DX: S39.012A Strain of muscle, fascia and tendon of lower back, initial encounter (principal); F17.290 Nicotine dependence, other tobacco product, uncomplicated; X50.0XXA Overexertion from strenuous movement or load, initial encounter
CPT/HCPCS: 81001; 96372; 99283; J1885

== ENCOUNTER 2024-02-28 18:24 | Emergency (ER) | payer OTHER, SELFPAY ==
[2024-02-28 18:26] VITALS: BP 167/109; PULSE 90; RESP 18; TEMP 36.9; O2SAT 99; BMI 24.5
--- NOTE | 2024-02-28 18:33 | PC.NURSE ---
DR CURRIE AT BEDSIDE
[2024-02-28] MEDS: cephALEXin 500MG CAPSULE 500 MG PO (18:49)
[2024-02-28] MEDS: SULFA/TRIMETHOPRIM 1 TABLET 1 EACH PO (18:49)
--- NOTE | 2024-02-28 18:49 | ED_ITS ---
Discharge Plan Disposition Patient Disposition: Home, Self-Care Prescriptions Prescriptions: New sulfamethoxazole-trimethoprim [Bactrim DS] 800-160 mg tablet 1 tab PO BID 10 Days Qty: 20 0RF cephalexin 500 mg capsule 500 mg PO QID 10 Days Qty: 40 0RF No Action doxycycline monohydrate 100 MG capsule 100 mg PO BID Qty: 14 0RF clindamycin HCl 150 mg capsule 150 mg PO BID 10 Days Qty: 20 0RF sulfamethoxazole-trimethoprim [Bactrim DS] 800-160 mg tablet 1 tab PO Q8H 10 Days Qty: 30 0RF cyclobenzaprine 10 mg tablet 10 mg PO TID PRN (Reason: muscle spasm) 5 Days Qty: 15 0RF lidocaine 4 % adhesive patch,medicated 1 patch topical DAILY Qty: 5 0RF Rx Instructions: may leave on for up to 12 hrs ibuprofen 600 mg tablet 600 mg PO Q8H PRN (Reason: pain) 7 Days Qty: 21 0RF Referrals Follow up/Referrals: Provider,Referral, MD [Primary Care Provider] - See instructions Activity Restrictions/Add. Instructions Additional Instructions/Restrictions: As discussed you had a small abscess which was about 1 cm in depth and 1 cm x 1/2 a centimeter in size. You are offered an incision and drainage but opted to attempt to treat this with warm compresses and oral antibiotics. As discussed this may not show any improvement for 48 to 72 hours please return with any significant worsening in your symptoms. Clinical Impressions Clinical Impression: Cellulitis of face, Abscess of face Instructions Patient Instructions: DI for Skin Abscess Print Language Print Language: Estonian Discharge ED Provider: Margi Akins General Adult HPI General Chief complaint: Skin/Abscess/Foreign Body Stated complaint: possible ingrown hair L side of face Time Seen by Provider: 02/28/24 18:28 Mode of Arrival: Ambulatory Source of Information: Patient Limitations: No Limitations Description of Symptoms (Recalled from ER Triage Doc. by RN): left sided jaw abcess. History of Present Illness HPI narrative: Patient is a 43-year-old male presenting today with pain and swelling of the left lateral aspect of his jaw with redness erythema and tenderness that has been spreading over the last several days. Does have a history of staph infections. Related Data Previous Rx's ?Medication ?Instructions ?Recorded doxycycline monohydrate 100 mg 100 mg PO BID #14 caps 01/20/21 capsule clindamycin HCl 150 mg capsule 150 mg PO BID 10 days #20 caps 10/20/23 sulfamethoxazole 800 1 tab PO Q8H 10 days #30 tabs 10/20/23 mg-trimethoprim 160 mg tablet (Bactrim DS) cyclobenzaprine 10 mg tablet 10 mg PO TID PRN muscle spasm 5 10/22/23 days #15 tabs ibuprofen 600 mg tablet 600 mg PO Q8H PRN pain 7 days #21 10/22/23 tabs lidocaine 4 % topical patch 1 patch topical DAILY #5 ea 10/22/23 cephalexin 500 mg capsule 500 mg PO QID 10 days #40 caps 02/28/24 sulfamethoxazole 800 1 tab PO BID 10 days #20 tabs 02/28/24 mg-trimethoprim 160 mg tablet (Bactrim DS) Allergies Allergy/AdvReac Type Severity Reaction Status Date / Time No Known Allergies Allergy Verified 06/13/19 14:01 [facility] Disclaimer: The information contained in this section may have been updated after the patient was seen, as this information can be updated by other users. 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 Small area of fluctuance and erythema 2. Facial swelling and tenderness Respiratory Respiratory exam: Present normal lung sounds bilaterally Cardiovascular Cardiovascular exam: Present regular rate Neurological Exam Neurological exam: Present alert and oriented X3 Medical Decision Making Medical Records Screening: Per USPSTF and CDC recommendations, given the prevalence of disease in our region, it is our hospital?s policy to screen for HIV and viral Hepatitis for all patients aged 18 and over and those with ongoing risk factors. Christos Inquiry Pt receiving controlled substance: No Vital Signs: 02/28/24 18:26 02/28/24 18:52 Temperature 98.4 F 97.9 F Temperature Source Oral Oral Pulse Rate 93 H Pulse Rate [Right] 90 Respiratory Rate 18 16 Blood Pressure 167/109 H Blood Pressure [Right Arm] 167/109 H Blood Pressure Mean [Right Arm] 128 Blood Pressure Source Automatic Cuff Blood Pressure Position Sitting 02 Sat by Pulse Oximetry 99 Oxygen Delivery Method Room Air Orders (Tests/Meds): ED MEDICATIONS Discontinued Medications Generic Name Dose Route Start Last Admin Trade Name Phong PRN Reason Stop Dose Admin Cephalexin HCl 500 mg 02/28/24 18:42 02/28/24 18:49 Cephalexin 500mg Capsule PO 02/28/24 18:43 500 mg ONCE ONE Administration Trimethoprim/Sulfamethoxazole 1 each 02/28/24 18:42 02/28/24 18:49 Sulfa/Trimethoprim 1 Tablet PO 02/28/24 18:43 1 each ONCE ONE Administration ORDERS Category Date Time Status POCUS Point of Care (ER Only) Stat Exams 02/28/24 18:34 Ordered HIV (1&2) Antibody Rapid Stat Lab 02/28/24 18:34 Ordered Hep C Ab with Reflex to RNA Stat Lab 02/28/24 18:34 Ordered Medical Decision Narrative: 43-year-old with above history and physical. At the minimum he has facial cellulitis clinically on exam. Bedside ultrasound was performed which did in fact show a fluid collection that was 1 cm deep and 1 x 0.5 cm in diameter. I discussed with him that this would benefit from an I&D maximally however he was very averse to having an I&D as he has had 1 in the past. After shared decision making I offered him warm compresses and oral antibiotics as this is a very small cellulitis and is possible to resolve with warm compresses and oral antibiotics. He understands that this may get significantly worse and he will return with any significant worsening of his symptoms at which point he would need an I&D. Procedures Miscellaneous Procedure Procedure Performed: Limited soft tissue ultrasound Indication: Soft tissue swelling Identified structures: Location: Left lateral face and jaw Findings: Soft tissue swelling with localized fluid collection that is 1 cm in depth and 1 x 1.5 cm in maximal diameters Impression: Superficial abscess with surrounding cellulitis as above Images were saved to permanent archive The study was technically adequate Soft Tissue CPT Codes: CPT Neck: 96440-06 CPT Upper extremity: 07436-36 CPT Axilla: 23234-37 CPT Chest wall: 99151-37 CPT Breast: 89372-04-OE/LT (complete), 26371-48-FK/LT (limited), CPT Upper Back: 95356-27 CPT Lower Back: 64725-15 CPT Abdominal Wall: 00414-22 CPT Pelvic Wall: 76649-17 CPT Lower Extremity: 55833-75 CPT Other Soft Tissue: 41718-65 This study was performed by me, and I personally interpreted all images/videos. Based on my clinical judgement, these images were adequate and did not necessitate further imaging. Critical Care Critical Care Time Critical Care Time: No
[2024-02-28 18:52] VITALS: BP 167/109; PULSE 93; RESP 16; TEMP 36.6; O2SAT 97
== END 2024-02-28 18:53 | disposition home or self-care (01) ==
PROVIDERS: Emergency Provider Student in an Organized Health Care Education/Training Program
DX: L02.01 Cutaneous abscess of face (principal); L03.211 Cellulitis of face; M27.2 Inflammatory conditions of jaws
CPT/HCPCS: 99283

== ENCOUNTER 2024-02-29 21:11 | Emergency (ER) | payer OTHER, SELFPAY ==
[2024-02-29 21:19] VITALS: BP 179/107; PULSE 72; RESP 20; TEMP 37.1; O2SAT 99; BMI 24.5
--- NOTE | 2024-02-29 21:20 | PC.NURSE ---
Consent received for I&D procedure
--- NOTE | 2024-02-29 21:45 | HMH.EDGENADL ---
Discharge Plan Disposition Patient Disposition: Home, Self-Care Prescriptions Prescriptions: No Action doxycycline monohydrate 100 MG capsule 100 mg PO BID Qty: 14 0RF clindamycin HCl 150 mg capsule 150 mg PO BID 10 Days Qty: 20 0RF sulfamethoxazole-trimethoprim [Bactrim DS] 800-160 mg tablet 1 tab PO Q8H 10 Days Qty: 30 0RF cyclobenzaprine 10 mg tablet 10 mg PO TID PRN (Reason: muscle spasm) 5 Days Qty: 15 0RF lidocaine 4 % adhesive patch,medicated 1 patch topical DAILY Qty: 5 0RF Rx Instructions: may leave on for up to 12 hrs ibuprofen 600 mg tablet 600 mg PO Q8H PRN (Reason: pain) 7 Days Qty: 21 0RF sulfamethoxazole-trimethoprim [Bactrim DS] 800-160 mg tablet 1 tab PO BID 10 Days Qty: 20 0RF cephalexin 500 mg capsule 500 mg PO QID 10 Days Qty: 40 0RF Referrals Follow up/Referrals: Provider,Referral, MD [Primary Care Provider] - See instructions Activity Restrictions/Add. Instructions Additional Instructions/Restrictions: You had an abscess in your face with surrounding cellulitis and reactive cervical lymphadenopathy please take your antibiotics as instructed expect 48 to 72 hours before you see significant improvement in your symptoms. If you have significant worsening of your swelling high fevers or other concerns please return to the emergency department as you may require IV antibiotics if this does not improve. As discussed with the small vessel loop that was placed in your abscess please floss that daily you may cut it out once there is no longer blood or pus coming from the wound. I do recommend you follow-up with your primary care doctor in the next 2 to 3 days for wound reevaluation. Please take all of your antibiotics until completion. Clinical Impressions Clinical Impression: Abscess of face, Facial cellulitis, Reactive cervical lymphadenopathy Print Language Print Language: Indonesian Discharge ED Provider: Margi Akins General Adult HPI General Chief complaint: PAIN Stated complaint: possible ingrown hair left side face Time Seen by Provider: 02/29/24 21:14 Mode of Arrival: Ambulatory Source of Information: Patient Limitations: No Limitations Description of Symptoms (Recalled from ER Triage Doc. by RN): Pt ambulatory to ED with cc of increasing pain. Pt has an infected hair on his left jaw. Pt was seen yesterday and was prescribed antibitoics. Pt states taking the antibiotics but is having increasing pain and swelling. Pt states the swelling and pain started approx 2-3 days ago. Pt states the pain radiates down his neck and causing a headache. History of Present Illness HPI narrative: 43-year-old who was seen in the ED yesterday by me diagnosed with a facial cellulitis and small abscess he was offered an incision and drainage at that time but wanted to avoid an I&D and attempted to take oral antibiotics with warm compresses without any significant improvement in symptoms return with worsening pain and swelling particular in the left submandibular region. Related Data Previous Rx's ?Medication ?Instructions ?Recorded doxycycline monohydrate 100 mg 100 mg PO BID #14 caps 01/20/21 capsule clindamycin HCl 150 mg capsule 150 mg PO BID 10 days #20 caps 10/20/23 sulfamethoxazole 800 1 tab PO Q8H 10 days #30 tabs 10/20/23 mg-trimethoprim 160 mg tablet (Bactrim DS) cyclobenzaprine 10 mg tablet 10 mg PO TID PRN muscle spasm 5 10/22/23 days #15 tabs ibuprofen 600 mg tablet 600 mg PO Q8H PRN pain 7 days #21 10/22/23 tabs lidocaine 4 % topical patch 1 patch topical DAILY #5 ea 10/22/23 cephalexin 500 mg capsule 500 mg PO QID 10 days #40 caps 02/28/24 sulfamethoxazole 800 1 tab PO BID 10 days #20 tabs 02/28/24 mg-trimethoprim 160 mg tablet (Bactrim DS) Allergies Allergy/AdvReac Type Severity Reaction Status Date / Time No Known Allergies Allergy Verified 06/13/19 14:01 [facility] Disclaimer: The information contained in this section may have been updated after the patient was seen, as this information can be updated by other users. 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 Swelling erythema fluctuance 2. Facial swelling and tenderness and erythema Respiratory Respiratory exam: Present normal lung sounds bilaterally Cardiovascular Cardiovascular exam: Present regular rate Neurological Exam Neurological exam: Present alert and oriented X3 Medical Decision Making Medical Records Screening: Per USPSTF and CDC recommendations, given the prevalence of disease in our region, it is our hospital?s policy to screen for HIV and viral Hepatitis for all patients aged 18 and over and those with ongoing risk factors. Christos Inquiry Pt receiving controlled substance: No Vital Signs: 02/29/24 21:19 Temperature 98.7 F Temperature Source Oral Pulse Rate [Left Radial] 72 Respiratory Rate 20 Blood Pressure [Right Arm] 179/107 H Blood Pressure Mean [Right Arm] 131 Blood Pressure Source [Right Arm] Automatic Cuff 02 Sat by Pulse Oximetry 99 Oxygen Delivery Method Room Air Orders (Tests/Meds): ORDERS Category Date Time Status POCUS Point of Care (ER Only) Stat Exams 02/29/24 21:16 Ordered Wound Culture and Gram Stain Stat Micro 02/29/24 21:43 Ordered Medical Decision Narrative: 43-year-old with return visit after failing warm compresses and oral antibiotics here with facial cellulitis and abscess on bedside ultrasound the drainable fluid collection has not changed significantly in size clinically he does have a little bit of increase in swelling. He also complains of significant pain in the left angle of the mandible where there is a localized reactive lymph node likely also lymphadenitis. No evidence of trismus no evidence of expanding fluid collection or intraoral extension etc. He is not septic he has been compliant with his oral antibiotics. We proceeded with an incision and drainage it was very thick and loculated purulence for this reason a small vessel loop was placed to keep the wound open he has been advised how to floss this and to provide local wound care. Return precautions emphasized he has been advised to take his vessel loop out once it is no longer draining pus or blood. I have advised that he also follow-up within 2 to 3 days to have a wound reevaluation and he understands that this could progressively get worse where he may need IV antibiotics. He will be compliant to complete his previously prescribed antibiotics he was discharged in improved and stable condition Procedures Abscess I/D Site: face Side (if applicable): left Local Anesthetic: lidocaine 1% and with epi Amount of anesthesia used (mL): 4 Technique: incised with #11 blade Amount of fluid expressed (mL): 3 Irrigation: No Packing used?: plain (small vessel loop ) Miscellaneous Procedure Procedure Performed: Limited soft tissue ultrasound Indication: Facial swelling and pain Identified structures: Location: Left side of the face and mandibular angle Findings: Findings similar to yesterday's ultrasound which shows soft tissue swelling and cellulitis and a localized drainable fluid collection approximately 1 cm in depth and 1 x 0.75 cm in diameter there is also a new lymph node just inferior to the left angle of the mandible that is likely reactive Impression: Left facial cellulitis and abscess with reactive cervical lymphadenopathy Images were saved to permanent archive The study was technically adequate Soft Tissue CPT Codes: CPT Neck: 31559-83 CPT Upper extremity: 84694-83 CPT Axilla: 33804-96 CPT Chest wall: 91150-21 CPT Breast: 37122-96-MD/LT (complete), 84162-13-VL/LT (limited), CPT Upper Back: 73964-25 CPT Lower Back: 30857-85 CPT Abdominal Wall: 21405-63 CPT Pelvic Wall: 27911-80 CPT Lower Extremity: 27679-02 CPT Other Soft Tissue: 36636-73 This study was performed by me, and I personally interpreted all images/videos. Based on my clinical judgement, these images were adequate and did not necessitate further imaging. Critical Care Critical Care Time Critical Care Time: No
[2024-02-29 21:54] VITALS: BP 151/102; PULSE 78; RESP 20; TEMP 37.1; O2SAT 95
== END 2024-02-29 21:59 | disposition home or self-care (01) ==
PROVIDERS: Emergency Provider Student in an Organized Health Care Education/Training Program
DX: L02.01 Cutaneous abscess of face (principal); R59.0 Localized enlarged lymph nodes
CPT/HCPCS: 87070; 87077; 87186; 87205; 99283

== ENCOUNTER 2024-10-06 23:12 | Emergency (ER) | payer OTHER, SELFPAY ==
--- NOTE | 2024-10-06 23:22 | ED_ITS ---
Discharge Plan Disposition Patient Disposition: Home, Self-Care Condition: Good Prescriptions Prescriptions: No Action doxycycline monohydrate 100 MG capsule 100 mg PO BID Qty: 14 0RF clindamycin HCl 150 mg capsule 150 mg PO BID 10 Days Qty: 20 0RF sulfamethoxazole-trimethoprim [Bactrim DS] 800-160 mg tablet 1 tab PO Q8H 10 Days Qty: 30 0RF cyclobenzaprine 10 mg tablet 10 mg PO TID PRN (Reason: muscle spasm) 5 Days Qty: 15 0RF lidocaine 4 % adhesive patch,medicated 1 patch topical DAILY Qty: 5 0RF Rx Instructions: may leave on for up to 12 hrs ibuprofen 600 mg tablet 600 mg PO Q8H PRN (Reason: pain) 7 Days Qty: 21 0RF sulfamethoxazole-trimethoprim [Bactrim DS] 800-160 mg tablet 1 tab PO BID 10 Days Qty: 20 0RF cephalexin 500 mg capsule 500 mg PO QID 10 Days Qty: 40 0RF Referrals Follow up/Referrals: Fuentes Nobles DO [Primary Care Provider, Family Practice] - See instructions Activity Restrictions/Add. Instructions Additional Instructions/Restrictions: Please take Tylenol and ibuprofen as needed for pain. Please use warm compresses to try to open up the area. Please apply bacitracin a couple times a day. Please follow-up with your primary care doctor on Friday. Clinical Impressions Clinical Impression: Folliculitis Instructions Patient Instructions: DI for Skin Abscess Print Language Print Language: Belarusian Discharge ED Provider: Fransico Phan General Adult HPI General Chief complaint: Skin/Abscess/Foreign Body Stated complaint: infected lesion head, bumps under skin neck Time Seen by Provider: 10/06/24 23:22 History of Present Illness HPI narrative: 44-year-old male presents for bumps on his neck. He has an area of folliculitis in his scalp posterior to his right ear and he has some reactive lymph nodes in the posterior chain of the neck. Symptoms been ongoing for the last couple of days. Denies any fever at home. He has had similar presentation before with an area of cellulitis on his face. Related Data Previous Rx's ?Medication ?Instructions ?Recorded doxycycline monohydrate 100 mg 100 mg PO BID #14 caps 01/20/21 capsule clindamycin HCl 150 mg capsule 150 mg PO BID 10 days # 20 caps 10/20/23 sulfamethoxazole 800 1 tab PO Q8H 10 days #30 tab s 10/20/23 mg-trimethoprim 160 mg tablet (Bactrim DS) cyclobenzaprine 10 mg tablet 10 mg PO TID PRN muscle s pasm 5 10/22/23 days #15 tabs ibuprofen 600 mg tablet 600 mg PO Q8H PRN pain 7 day s #21 10/22/23 tabs lidocaine 4 % topical patch 1 patch topical DAILY #5 e a 10/22/23 cephalexin 500 mg capsule 500 mg PO QID 10 days #40 ca ps 02/28/24 sulfamethoxazole 800 1 tab PO BID 10 days #20 tab s 02/28/24 mg-trimethoprim 160 mg tablet (Bactrim DS) Allergies Allergy/AdvReac Type Severity Reaction Status Date / Time No Known Allergies Allergy Verified 06/13/19 14:01 [facility] Disclaimer: The information contained in this section may have been updated after the patient was seen, as this information can be updated by other users. 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 current occupational status: unemployed Travel in the last 8 weeks?: None housing: apartment Other Medical History Have you received the Flu Vaccine for this season: No Have you received the Pneumonia Vaccine: No ROS Obtained: Yes All systems reviewed & no additional complaints except as documented Physical Exam General General appearance: alert and in no apparent distress Head Head exam: atraumatic, normocephalic and other (Small area of folliculitis in the right parietal occipital scalp.) Eye Eye exam: Present normal appearance, PERRL and EOMI ENT ENT exam: Present normal oropharynx and normal external ear exam Neck Neck exam: Present normal inspection, full ROM and lymphadenopathy (Lymphadenopathy in the right posterior chain) Chest Chest inspection: Present normal inspection and symmetric chest wall rise; Absent tenderness Respiratory Respiratory exam: Present normal lung sounds bilaterally; Absent respiratory distress Cardiovascular Cardiovascular exam: Present regular rate and normal rhythm Abdominal Exam Abdominal exam: Present soft; Absent distention, tenderness or guarding Extremities Exam Extremities exam: Present normal inspection; Absent edema or joint swelling Back Exam Back exam: Present normal inspection; Absent tenderness Neurological Exam Neurological exam: Present alert and oriented X3; Absent motor sensory deficit Psychiatric Psychiatric exam: Present normal affect and normal mood Skin Skin exam: Present warm, dry and normal color Lymphatic Lymphatic Findings: no adenopathy Medical Decision Making Medical Records Medical records reviewed: Yes I reviewed the patient's medical records. Screening: Per USPSTF and CDC recommendations, given the prevalence of disease in our region, it is our hospital?s policy to screen for HIV and viral Hepatitis for all patients aged 18 and over and those with ongoing risk factors. Christos Inquiry Pt receiving controlled substance: No Christos was queried for this patient: No Vital Signs: 10/06/24 23:24 10/06/24 23:48 Temperature 97.8 F 97.8 F Temperature Source Oral Oral Pulse Rate 58 L Pulse Rate [Radial] 60 Respiratory Rate 16 14 Blood Pressure 178/109 H Blood Pressure [Right Arm] 181/113 H Blood Pressure Mean [Right Arm] 135 Blood Pressure Position Sitting Blood Pressure Position [Right Arm] Sitting 02 Sat by Pulse Oximetry 95 Oxygen Delivery Method Room Air Room Air Lab Data Lab results reviewed: Yes I reviewed the patient's lab results. Orders (Tests/Meds): ED MEDICATIONS Discontinued Medications Generic Name Dose Route Start Last Admin Trade Name Phong PRN Reason Stop Dose Admin Acetaminophen 1,000 mg 10/06/24 23:33 10/06/24 23:39 Acetaminophen 500mg Tab PO 10/06/24 23:34 1,000 mg ONCE ONE Administration Bacitracin 1 gm 10/06/24 23:45 Bacitracin Zinc Oint 30gm Tube TP 11/05/24 23:44 DAILY ANNE MARIE Cocaine HCl 1 ml 10/06/24 23:33 10/06/24 23:38 Cocaine 4% Topical Soln 4ml Bottle TP 10/06/24 23:34 1 ml ONCE ONE Administration Epinephrine HCl 1 mg 10/06/24 23:33 10/06/24 23:39 Epinephrine 1 Mg/Ml Ampul TP 10/06/24 23:34 1 mg ONCE ONE Administration Ibuprofen 600 mg 10/06/24 23:33 10/06/24 23:39 Ibuprofen 600 Mg Tablet PO 10/06/24 23:34 600 mg ONCE ONE Administration Lidocaine HCl 1 ml 10/06/24 23:33 10/06/24 23:38 Lidocaine 2% Urojet 10ml TP 10/06/24 23:34 1 ml ONCE ONE Administration Medical Decision Narrative: 44-year-old male with history of cellulitis presents for red bump in his scalp and bumps on his neck.. History was obtained via interactive discussion with patient. On arrival, patient is [afebrile, hemodynamically stable, satting appropriately, alert, oriented x4, GCS 15], moving all extremities spontaneously. Full physical exam performed and significant for small area of folliculitis in the scalp with reactive lymphadenopathy in the neck. Differential includes but is not limited to abscess, cellulitis, folliculitis. The area of erythema is small. I attempted to express purulence without success. Patient was given Tylenol, ibuprofen, topical lidocaine and bacitracin. He was encouraged to use warm compresses over the area to try to open it up. He has follow-up with his PCP in a couple of days, recommended he get reassessed at that time. I considered systemic antibiotics but given the size of the area I do not think it warrants antibiotics at this time. I considered abscess drainage but there was no obvious fluid to be drained. Procedures Risk/Benefits of Procedure(s) Were Explained: Yes Critical Care Critical Care Time Critical Care Time: No
[2024-10-06 23:24] VITALS: BP 181/113; PULSE 60; RESP 16; TEMP 36.6; O2SAT 95; BMI 25.0
--- NOTE | 2024-10-06 23:29 | PC.NURSE ---
ED provider at the bedside.
[2024-10-06] MEDS: COCAINE 4% TOPICAL SOLN 4ML BOTTLE 1 ML TP (23:38)
[2024-10-06] MEDS: LIDOCAINE 2% UROJET 10ML TP (23:38)
[2024-10-06] MEDS: EPINEPHrine 1 MG/ML AMPUL TP (23:39)
[2024-10-06] MEDS: ACETAMINOPHEN 500MG TAB 1000 MG PO (23:39)
[2024-10-06] MEDS: IBUPROFEN 600 MG TABLET PO (23:39)
--- OUTSIDE RECORDS SUMMARY | 2024-10-06 23:42 | XMS_ITS | Clinical Summary ---
Author Organization Healthcare Address [address] [place] [address] Care Team Providers Care Systems Design Engineer Name Role Phone Deneen Saenz SAFETY DEPOSIT CLERK Unavailable Unavailable Social History Tobacco Use Types Packs/Day Years Used Date Smoking Tobacco: Never Assessed Sex and Gender Information Value Date Recorded Sex Assigned at Not on file Legal Sex Male 7:33 PM EDT Gender Identity Not on file Sexual Orientation Not on file Plan of Treatment Health Maintenance Due Date Last Done Comments [facility]-Depression Screening 1980 [facility]-Infant/Child/Adol SDOH Screenings 1980 [facility]-Varicella Vaccines (1 of 2 - 13+ 2-dose series) 1993 HPV Vaccines (1 - Male 3-dos e series) 07/20/1995 [facility]- SDOH Screenings 1998 [facility]-Adult SDOH Screenings 1998 [facility]-DTaP,Tdap,and Td Vaccine s (1 - Tdap) 07/20/1999 [facility]-Hepatitis B Vaccines (1 of 3 - 19+ 3-dose series) 07/20/1999 [id number] Vaccine (1 - 20 24-25 season) 2023 [facility]-Influenza Vaccine (Seaso n Ended) 2024 [facility]-Zoster Vaccines (1 of 2) 2030 [facility]-HIB Vaccines Aged Out No longer e ligible based on patient's age to complete this topic [facility]-Hepatitis A Vaccines Aged Out No longer eligible based on patient's age to complete this topic [facility]-IPV Vaccines Aged Out No longer e ligible based on patient's age to complete this topic [facility]-Pneumococcal Vaccine: Pediatrics (0 to 5 Years) and At-Risk Patients (6 to 49 Years) Aged Out No long er eligible based on patient's age to complete this topic [facility]-Rotavirus Vaccines Aged Out No lo nger eligible based on patient's age to complete this topic Care Teams Systems Design Engineer Relationship Specialty Start Date End Date Deneen Saenz, [place] [address] Grinder Set Up Operator Thread Tool Hide House Supervisor 02/04/19
--- OUTSIDE RECORDS SUMMARY | 2024-10-06 23:42 | XMS_ITS ---
Author Organization Healthcare Address [address] [place] [address] Care Team Providers Care Manager Mortgage Name Role Phone Deneen Saenz LCSW Unavailable Unavailable Hepatitis C Program Status:Active (Active) Start date:02/04/2019 Enrollment date:02/04/2019 Enrollment reason:HCV Continued Care and Services Coordination
[2024-10-06 23:48] VITALS: BP 178/109; PULSE 58; RESP 14; TEMP 36.6; O2SAT 100
== END 2024-10-06 23:49 | disposition home or self-care (01) ==
LOC: ER 23:40
PROVIDERS: Emergency Provider Emergency Medicine; PCP Internal Medicine
DX: L73.9 Follicular disorder, unspecified (principal); R59.0 Localized enlarged lymph nodes
CPT/HCPCS: 99283; J0171